=== PATIENT | female | born 1985 | race Caucasian/White ===

== ENCOUNTER 2018-08-22 06:14 | Day surgery (SDC) | payer BC ==
[~2018-08-22 06:14] MED LIST: Lactated Ringers 1,000 ML IV SCH; Sodium Chloride 0.9% 10 ML SDV IV PRN; Sodium Chloride 0.9% 10 ML Syringe FLUSH PRN; Sodium Chloride 0.9% 2.5 ML Syringe FLUSH PRN
[2018-08-22] MEDS ORDERED: fentaNYL 100 MCG/2 ML SDV ONE (07:15)
[2018-08-22] MEDS ORDERED: Midazolam 1 MG/ML 2 ML SDV ONE (07:15)
[2018-08-22] MEDS ORDERED: Propofol 200 MG/20 ML SDV ONE (07:15)
[2018-08-22 07:20] LABS: CHLORIDE,CL 105 mmol/L (98-107); SODIUM,NA 139 mmol/L (136-145)
--- NOTE | 2018-08-22 07:33 | PCM.PREANE ---
Preanesthetic Assessment - Anesthesia/Transfusion/Family Hx Anesthesia History: Prior Anesthesia Without Reaction Family History of Anesthesia Reaction: No Transfusion History: Prior Transfusion Without Reaction Intubation History: Unknown - Review of Systems General: No Symptoms Pulmonary: No Symptoms Cardiovascular: No Symptoms Gastrointestinal: No Symptoms Neurological: No Symptoms Other: Reports: None - Physical Assessment O2 Sat by Pulse Oximetry: 99 Respiratory Rate: 16 Vital Signs: Last Vital Signs Temp 36.1 C 08/22/18 06:44 Pulse 68 08/22/18 06:44 Resp 16 08/22/18 06:44 BP 102/65 08/22/18 06:44 Pulse Ox 99 08/22/18 06:44 Height: 1.65 m Weight: 61.689 kg ASA Class: 2 Mental Status: Alert & Oriented x3 Airway Class: Mallampati = 2 Dentition: Reports: Normal Dentition Thyro-Mental Finger Breadths: 3 Mouth Opening Finger Breadths: 3 ROM/Head Extension: Full Lungs: Clear to Auscultation, Normal Respiratory Effort Cardiovascular: Regular Rate, Regular Rhythm - Lab Values: Laboratory Last Values WBC 5.94 K/uL (4.0-11.0) 08/22/18 07:00 RBC 4.51 M/uL (4.30-5.90) 08/22/18 07:00 Hgb 13.6 g/dL (12.0-16.0) 08/22/18 07:00 Hct 39.7 % (36.0-46.0) 08/22/18 07:00 MCV 88.0 fL (80.0-98.0) 08/22/18 07:00 MCH 30.2 pg (27.0-32.0) 08/22/18 07:00 MCHC 34.3 g/dL (31.0-37.0) 08/22/18 07:00 RDW Std Deviation 43.7 fl (28.0-62.0) 08/22/18 07:00 RDW Coeff of Leslie 14 % (11.0-15.0) 08/22/18 07:00 Plt Count 244 K/uL (150-400) 08/22/18 07:00 MPV 9.00 fL (7.40-12.00) 08/22/18 07:00 Nucleated RBC % 0.0 /100WBC 08/22/18 07:00 Nucleated RBCs # 0 K/uL 08/22/18 07:00 Sodium 139 mmol/L (136-145) 08/22/18 07:00 Potassium 3.7 mmol/L (3.5-5.1) 08/22/18 07:00 Chloride 105 mmol/L (98-107) 08/22/18 07:00 Carbon Dioxide 26.5 mmol/L (21.0-32.0) 08/22/18 07:00 BUN 18 mg/dL (7.0-18.0) 08/22/18 07:00 Creatinine 0.9 mg/dL (0.6-1.0) 08/22/18 07:00 Est Cr Clr Drug Dosing 80.75 mL/min 08/22/18 07:00 Estimated GFR (MDRD) > 60.0 ml/min 08/22/18 07:00 Glucose 88 mg/dL (74-106) 08/22/18 07:00 Calcium 8.4 mg/dL (8.5-10.1) L 08/22/18 07:00 HCG, Qual NEGATIVE (NEG) 08/22/18 07:00 - Allergies Allergies/Adverse Reactions: Allergies Allergy/AdvReac Type Severity Reaction Status Date / Time No Known Allergies Allergy Verified 08/20/18 12:15 - Blood Blood Available: No - Anesthesia Plan Pre-Op Medication Ordered: None - Acknowledgements Anesthesia Type Planned: General Anesthesia Pt an Appropriate Candidate for the Planned Anesthesia: Yes Alternatives and Risks of Anesthesia Discussed w Pt/Guardian: Yes Pt/Guardian Understands and Agrees with Anesthesia Plan: Yes PreAnesthesia Questionnaire HEENT History: Reports: Other (See Below) Other HEENT History: wears glasses/contacts Cardiovascular History: Reports: Arrhythmia, Other (See Below) Other Cardiovascular History: SVT in the past, not in last ten years (ASD fixed at age 12) Respiratory History: Reports: None Gastrointestinal History: Reports: None Genitourinary History: Reports: None PULP COOKER History: Reports: Musculoskeletal History: Reports: Back Pain, Chronic, Fracture Other Musculoskeletal History: hx fx back and ribs Neurological History: Reports: None Psychiatric History: Reports: None Endocrine/Metabolic History: Reports: None Hematologic History: Reports: Blood Transfusion(s) Immunologic History: Reports: None Oncologic (Cancer) History: Reports: None Dermatologic History: Reports: None - Past Surgical History Head Surgeries/Procedures: Reports: None Cardiovascular Surgical History: Reports: Other (See Below) Other Cardiovascular Surgeries/Procedures: surgery at 12 years for atrial septial defect, Respiratory Surgical History: Reports: None GI Surgical History: Reports: None Female Surgical History: Reports: D&C Endocrine Surgical History: Reports: None Neurological Surgical History: Reports: None Musculoskeletal Surgical History: Reports: None Oncologic Surgical History: Reports: None - SUBSTANCE USE Smoking Status *Q: Light Tobacco Smoker Tobacco Use Within Last Twelve Months: Other (See Below) Recreational Drug Use History: No - HOME MEDS Home Medications: Home Meds Multivitamin [Multiple Vitamins] 1 tab PO DAILY 08/20/18 [History] - CURRENT (IN HOUSE) MEDS Current Meds: Current Medications Lactated Ringer's (Ringers, Lactated) 1,000 mls @ 125 mls/hr IV ASDIRECTED TAYLER Last Admin: 08/22/18 06:48 Dose: 125 mls/hr Sodium Chloride (Saline Flush) 10 ml FLUSH ASDIRECTED PRN PRN Reason: Keep Vein Open Sodium Chloride (Saline Flush) 2.5 ml FLUSH ASDIRECTED PRN PRN Reason: Keep Vein Open Sodium Chloride (Normal Saline) 10 ml IV ASDIRECTED PRN PRN Reason: IV Use Discontinued Medications Fentanyl (Sublimaze) Confirm Administered Dose 100 mcg .ROUTE .STK-MED ONE Stop: 08/22/18 07:16 Midazolam HCl (Versed 1 Mg/Ml) Confirm Administered Dose 2 mg .ROUTE .STK-MED ONE Stop: 08/22/18 07:16 Propofol (Diprivan 20 Ml) Confirm Administered Dose 200 mg .ROUTE .STK-MED ONE Stop: 08/22/18 07:16
[2018-08-22] MEDS ORDERED: HYDROmorphone 2 MG/ML Syringe ONE (07:34)
[2018-08-22] MEDS ORDERED: Octyl 2-Cyanoacrylate 1 Tube ONE (07:35)
[2018-08-22] MEDS ORDERED: Fluorescein 5 ML Vial ONE (07:35)
[2018-08-22] MEDS ORDERED: HYDROmorphone 2 MG/ML SDV IVPUSH ONE (08:34)
[2018-08-22] MEDS ORDERED: Ondansetron 4 MG/2 ML SDV IVPUSH ONE (08:34)
[2018-08-22] MEDS ORDERED: Meperidine PF 25 MG/ML Syringe IVPUSH ONE (08:34)
[2018-08-22] MEDS ORDERED: Glycopyrrolate 0.2 MG/ML SDV ONE (08:39)
[2018-08-22] MEDS ORDERED: Neostigmine Methylsulfate 1 MG/ML 5 ML Syringe ONE (08:39)
[2018-08-22] MEDS ORDERED: Promethazine 25 MG/ML SDV IM PRN (08:47)
[2018-08-22] MEDS ORDERED: Ketorolac 30 MG/ML SDV IVPUSH ONE (08:47)
[2018-08-22] MEDS ORDERED: Ondansetron 4 MG/2 ML SDV IVPUSH PRN (08:47)
[2018-08-22] MEDS ORDERED: Acetaminophen/oxyCODONE 325-5 MG Tab PO PRN ×2 (08:47)
[2018-08-22] MEDS ORDERED: Morphine 4 MG/ML Syringe IVPUSH PRN (08:47)
[2018-08-22] MEDS ORDERED: Ketorolac 30 MG/ML SDV IVPUSH PRN (08:47)
--- NOTE | 2018-08-22 08:51 | PCM.OPNOTE ---
- General Post-Op/Procedure Note Date of Surgery/Procedure: 08/22/18 Operative Procedure(s): Hystroscopy ,removal of IUD, and Dignostic Laparoseopy Pre Op Diagnosis: Pelvic pain, Post-Op Diagnosis: Same Primary Surgeon: Prosper HURD in mLs: 30 Complications: None Condition: Good
--- NOTE | 2018-08-22 08:52 | PCM.DCSUM1 ---
Discharge Summary - Hospital Course Diagnosis: Stroke: No - Discharge Data Discharge Date: 08/22/18 Discharge Disposition: Home, Self-Care 01 Condition: Good - Patient Summary/Data Operative Procedure(s) Performed: Hystroscopy ,removal of IUD, and Dignostic Laparoseopy - Patient Instructions Diet: Usual Diet as Tolerated Activity: As Tolerated Driving: Do Not Drive Showering/Bathing: May Shower - Discharge Plan Home Medications: Home Meds Multivitamin [Multiple Vitamins] 1 tab PO DAILY 08/20/18 [History] - Discharge Summary/Plan Comment DC Time >30 min.: Yes - General Info Date of Service: 08/22/18 Functional Status: Reports: Pain Controlled - Review of Systems General: Reports: No Symptoms HEENT: Reports: No Symptoms Pulmonary: Reports: No Symptoms Cardiovascular: Reports: No Symptoms Gastrointestinal: Reports: No Symptoms Genitourinary: Reports: No Symptoms Musculoskeletal: Reports: No Symptoms Skin: Reports: No Symptoms Neurological: Reports: No Symptoms Psychiatric: Reports: No Symptoms - Patient Data Vitals - Most Recent: Last Vital Signs Temp 36.1 C 08/22/18 06:44 Pulse 68 08/22/18 06:44 Resp 16 08/22/18 07:33 BP 102/65 08/22/18 06:44 Pulse Ox 99 08/22/18 07:33 Weight - Most Recent: 61.689 kg Lab Results - Last 24 hrs: Laboratory Results - last 24 hr 08/22/18 08/22/18 08/22/18 Range/Units 07:00 07:00 07:00 WBC 5.94 (4.0-11.0) K/uL RBC 4.51 (4.30-5.90) M/uL Hgb 13.6 (12.0-16.0) g/dL Hct 39.7 (36.0-46.0) % MCV 88.0 (80.0-98.0) fL MCH 30.2 (27.0-32.0) pg MCHC 34.3 (31.0-37.0) g/dL RDW Std Deviation 43.7 (28.0-62.0) fl RDW Coeff of Leslie 14 (11.0-15.0) % Plt Count 244 (150-400) K/uL MPV 9.00 (7.40-12.00) fL Nucleated RBC % 0.0 /100WBC Nucleated RBCs # 0 K/uL Sodium 139 (136-145) mmol/L Potassium 3.7 (3.5-5.1) mmol/L Chloride 105 (98-107) mmol/L Carbon Dioxide 26.5 (21.0-32.0) mmol/L BUN 18 (7.0-18.0) mg/dL Creatinine 0.9 (0.6-1.0) mg/dL Est Cr Clr Drug Dosing 80.75 mL/min Estimated GFR (MDRD) > 60.0 ml/min Glucose 88 (74-106) mg/dL Calcium 8.4 L (8.5-10.1) mg/dL HCG, Qual NEGATIVE (NEG) Blood Type Antibody Screen 08/22/18 Range/Units 07:00 WBC (4.0-11.0) K/uL RBC (4.30-5.90) M/uL Hgb (12.0-16.0) g/dL Hct (36.0-46.0) % MCV (80.0-98.0) fL MCH (27.0-32.0) pg MCHC (31.0-37.0) g/dL RDW Std Deviation (28.0-62.0) fl RDW Coeff of Leslie (11.0-15.0) % Plt Count (150-400) K/uL MPV (7.40-12.00) fL Nucleated RBC % /100WBC Nucleated RBCs # K/uL Sodium (136-145) mmol/L Potassium (3.5-5.1) mmol/L Chloride (98-107) mmol/L Carbon Dioxide (21.0-32.0) mmol/L BUN (7.0-18.0) mg/dL Creatinine (0.6-1.0) mg/dL Est Cr Clr Drug Dosing mL/min Estimated GFR (MDRD) ml/min Glucose (74-106) mg/dL Calcium (8.5-10.1) mg/dL HCG, Qual (NEG) Blood Type A POSITIVE Antibody Screen NEGATIVE Med Orders - Current: Current Medications Fentanyl (Sublimaze) 50 mcg IVPUSH Q5M PRN PRN Reason: Pain (severe 7-10) Stop: 08/23/18 08:34 Lactated Ringer's (Ringers, Lactated) 1,000 mls @ 125 mls/hr IV ASDIRECTED TAYLER Last Admin: 08/22/18 06:48 Dose: 125 mls/hr Ketorolac Tromethamine (Toradol) 30 mg IVPUSH ONETIME ONE Stop: 08/22/18 08:48 Ketorolac Tromethamine (Toradol) 30 mg IVPUSH Q6H PRN PRN Reason: Pain (severe 7-10) Stop: 08/27/18 08:47 Morphine Sulfate (Morphine) 4 mg IVPUSH Q2H PRN PRN Reason: Pain (severe 7-10) Ondansetron HCl (Zofran) 4 mg IVPUSH Q6H PRN PRN Reason: Nausea/Vomiting Oxycodone/Acetaminophen (Percocet 325-5 Mg) 1 tab PO Q4H PRN PRN Reason: Pain (moderate 4-6) Oxycodone/Acetaminophen (Percocet 325-5 Mg) 2 tab PO Q4H PRN PRN Reason: Pain (moderate 4-6) Promethazine HCl (Phenergan) 25 mg IM Q6H PRN PRN Reason: Nausea/Vomiting Sodium Chloride (Saline Flush) 10 ml FLUSH ASDIRECTED PRN PRN Reason: Keep Vein Open Sodium Chloride (Saline Flush) 2.5 ml FLUSH ASDIRECTED PRN PRN Reason: Keep Vein Open Sodium Chloride (Normal Saline) 10 ml IV ASDIRECTED PRN PRN Reason: IV Use Discontinued Medications Fentanyl (Sublimaze) Confirm Administered Dose 100 mcg .ROUTE .STK-MED ONE Stop: 08/22/18 07:16 Fluorescein Sodium (Ak-Fluor) Confirm Administered Dose 5 ml .ROUTE .STK-MED ONE Stop: 08/22/18 07:36 Glycopyrrolate (Robinul) Confirm Administered Dose 0.6 mg .ROUTE .STK-MED ONE Stop: 08/22/18 08:40 Hydromorphone HCl (Dilaudid) Confirm Administered Dose 2 mg .ROUTE .STK-MED ONE Stop: 08/22/18 07:35 Hydromorphone HCl (Dilaudid) 2 mg IVPUSH ONETIME ONE Stop: 08/22/18 08:35 Meperidine HCl (Demerol) 12.5 mg IVPUSH ONETIME ONE Stop: 08/22/18 08:35 Midazolam HCl (Versed 1 Mg/Ml) Confirm Administered Dose 2 mg .ROUTE .STK-MED ONE Stop: 08/22/18 07:16 Neostigmine Methylsulfate (Neostigmine) Confirm Administered Dose 5 mg .ROUTE .STK-MED ONE Stop: 08/22/18 08:40 Octyl Cyanoacrylate (Dermabond Advance) Confirm Administered Dose 1 applic .ROUTE .STK-MED ONE Stop: 08/22/18 07:36 Ondansetron HCl (Zofran) 4 mg IVPUSH ONETIME ONE Stop: 08/22/18 08:35 Propofol (Diprivan 20 Ml) Confirm Administered Dose 200 mg .ROUTE .STK-MED ONE Stop: 08/22/18 07:16 - Exam General: Reports: Alert, Oriented HEENT: Reports: Pupils Equal, Pupils Reactive, EOMI, Mucous Membr. Moist/[place] Neck: Reports: Supple Lungs: Reports: Clear to Auscultation, Normal Respiratory Effort Cardiovascular: Reports: Regular Rate, Regular Rhythm GI/Abdominal Exam: Normal Bowel Sounds, Soft, Non-Tender, No Organomegaly, No Distention, No Abnormal Bruit, No Mass, Pelvis Stable (Female) Exam: Normal External Exam, Normal Speculum Exam, Normal Bimanual Exam Rectal (Female) Exam: Normal Exam, Normal Rectal Tone Back Exam: Reports: Normal Inspection, Full Range of Motion Extremities: Normal Inspection, Normal Range of Motion, Non-Tender, No Pedal Edema, Normal Capillary Refill Skin: Reports: Warm, Dry, Intact Wound/Incisions: Reports: Healing Well Neurological: Reports: No New Focal Deficit Psy/Mental Status: Reports: Alert, Normal Affect, Normal Mood
[2018-08-22] MEDS: fentaNYL 100 MCG/2 ML SDV IVPUSH PRN ×2 (09:06→09:16)
--- NOTE | 2018-08-22 09:51 | PCM.POSTAN ---
POST ANESTHESIA ASSESSMENT - MENTAL STATUS Mental Status: Alert, Oriented - RESPIRATORY Respiratory Status: Respiratory Rate WNL, Airway Patent, O2 Saturation Stable - CARDIOVASCULAR CV Status: Pulse Rate WNL, Blood Pressure Stable - GASTROINTESTINAL GI Status: No Symptoms - PAIN Pain Score: 5 - POST OP HYDRATION Hydration Status: Adequate & Stable - OBSERVATIONS Free Text/Narrative:: no anesthesia problems
--- NOTE | 2018-08-22 13:56 | OR ---
SURGEON: Prosper Howard MD DATE OF PROCEDURE: 08/22/2018 PREOPERATIVE DIAGNOSES: Lost IUD and pelvic pain. POSTOPERATIVE DIAGNOSES: Lost IUD and pelvic pain. OPERATIONS PERFORMED: Hysteroscopy to retrieve her of the lost IUD, and diagnostic laparoscopy. DRILLING CONTRACTOR: OR tech. ANESTHESIA: General endotracheal intubation. ESTIMATED BLOOD LOSS: Less than 20 mL. COMPLICATIONS: None. FINDINGS: The endometrial cavity by hysteroscopy essentially is normal. Both ostia were visualized and they looked normal. The IUD strings were curled along the IUD inside the uterus and the IUD retrieved without any problem. The laparoscopic finding, the right tubes and ovaries normal. The right pelvic fossa was normal. The bladder flap was normal. The cul-de-sacs and both uterosacral ligament was visualized and they were normal. The uterus was normal. The left tubes and ovaries essentially were normal. The left ovarian fossa and left pelvic sidewall were normal. There is no evidence of endometriosis. INDICATIONS FOR SURGERY: This patient does have a lost IUD. She had pelvic pain and treated it with multiple bout of medication with pain. Her family have history of endometriosis. She is admitted to the outpatient with intention of doing hysteroscopy of retrieving the IUD, and diagnostic laparoscopy. PROCEDURE IN DETAIL: The patient was brought to the OR, properly identified, and after adequate level anesthesia, patient was placed in lithotomy position, prepped and draped in sterile fashion as usual, and then straight catheter was used to empty the bladder. Then, single-tooth tenaculum was applied to the uterus. The uterus was sequentially dilated to accommodate the hysteroscope. Hysteroscopy was performed. The IUD strings identified and the IUD identified and removed without any problem and continued with the hysteroscopy. The hysteroscopic finding essentially is normal. Then, the operation shifted abdominally. After placing a SLIM manipulator in the uterus. The stab wound was done beneath the umbilicus. The Veress needle was placed in the peritoneal cavity and that cavity insufflated with 6 L of carbon dioxide, and then and the utilizing the Visiport technique, the endometrial cavity was entered and the patient was placed in steep Trendelenburg. Then, two 5 mm trocars in the left iliac fossa was done, and then we went systematically by exploring her pelvis with the laparoscope. As the above-mentioned dictated finding, there was no evidence of endometriosis, there was no evidence of scarring, and I visualized her entire pelvis. After that, the bladder was visualized and was normal, and satisfied that there is no BARREL FINISHER pathology at this time, the procedure was ended. The instrument and hardware were retrieved from the abdomen and the vagina, and multiple laparoscopic incision was closed in layers. The instrument and sponge counts were correct. The patient tolerated the procedure well, went to recovery room in stable general condition. KANE / ABHI /[id number]
== END 2018-08-22 11:28 | disposition home or self-care (01) ==
LOC: MW.SDS 06:14
PROVIDERS: ATTEND Obstetrics & Gynecology
DX: T83.32XA Displacement of intrauterine contraceptive device, initial encounter (principal); R10.2 Pelvic and perineal pain; N94.10 Unspecified dyspareunia; F17.200 Nicotine dependence, unspecified, uncomplicated; F41.8 Other specified anxiety disorders; L70.0 Acne vulgaris; Z79.899 Other long term (current) drug therapy
CPT/HCPCS: 36415; 49320; 58562; 80048; 84703; 85027; 86850; 86900; 86901; 88300; A9270; J1885; J2250; J2704; J3010; J3490; J7120